=== PATIENT | male | born 1970 | race Caucasian/White ===

== ENCOUNTER 2017-04-01 19:31 | Emergency (ER) | payer OTHER ==
[~2017-04-01 19:31] MED LIST: BACTRIM DS 8001 TAB PO; COZAAR 50MG TAB50 MG PO; DOLOPHINE10 MG PO; DURICEF500 MG PO; KEFLEX500 MG PO; METHADONE H5 MG/5 M1 PO
--- NOTE | 2017-04-01 20:04 | RADIOLOGY REPORT ---
EXAMINATION: XR HAND, RIGHT CLINICAL INFORMATION: Pain after injury. COMPARISON: None TECHNIQUE: AP, lateral, and oblique views of the right hand. FINDINGS: No fracture or dislocation. Alignment is anatomic. Joint spaces are maintained. The soft tissues are unremarkable. IMPRESSION: No fracture or malalignment.
--- NOTE | 2017-04-01 20:25 | ED HAND/WRIST INJURY COMPLAINT ---
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 Source: patient Exam Limitations: no limitations Vital Signs & Intake/Output Vital Signs & Intake/Output Vital Signs Date Time Temp Pulse Resp B/P B/P Pulse O2 O2 Flow FiO2 Mean Ox Delivery Rate 04/01 2119 97.7 85 18 138/63 99 04/01 1941 90 22 142/84 97 Room Air Allergies Coded Allergies: MDX - Aspirin (ASPIRIN) (HIVES 12/16/14) Reconcile Medications Cefadroxil (Duricef) 500 MG CAP 1 CAP PO BID post op Losartan (Cozaar) 50 MG TAB 1 TAB PO DAILY B/P (Reported) Losartan/Hydrochlorothiazide (Losartan-Hctz 50-12.5 MG Tab) 50 MG-12.5 MG TABLET 1 TAB PO DAILY HTN (Reported) Metformin HCl 500 MG TABLET 1 TAB PO BID DM (Reported) Methadone Hydrochloride (Dolophine) 10 MG TABLET 60 MG PO D HEROIN ABUSE HX ( Reported) Triage Note: 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 PT REPORTS NEEDS AN XR TO SEE IF ITS BROKEN. NONSUTURABLE LAC TO TOP OF RT HAND + SWELLING + PULSES LAST TETANUS 5-6 YRS AGO Triage Nurses Notes Reviewed? yes Occurred: this afternoon Duration: hour(s):, constant, continues in ED Timing: recent history Injury Environment: work Severity: moderate, severe Pain/Injury Location: Left: Hand. Method of Injury: direct blow No Modifying Factors: none HPI: 47-year-old male comes into emergency room for further evaluation of left hand pain. Patient reports that at work his hand slipped and hit into a drill bit. The drill did not go through his hand. He has a superficial cut. Some swelling. Some pain. Denies any injury trauma anywhere else. Denies any numbness or tingling. Denies any other associated symptoms. (JAMARCUS ESCOBAR) Past History Travel History Traveled to [place] past 21 day No Medical History Any Pertinent Medical History? see below for history Neurological: NONE EENT: NONE Cardiovascular: hypertension, PVD Respiratory: NONE Gastrointestinal: NONE Hepatic: NONE Renal: NONE Musculoskeletal: NONE Psychiatric: anxiety, HX OF HEROIN (METHADONE) Endocrine: TYPE 2 DM Blood Disorders: NONE Cancer(s): NONE PARK GUIDE/Reproductive: NONE Surgical History Surgical History: non-contributory Psychosocial History What is your primary language [place] Tobacco Use: Current Daily Use Daily Tobacco Use Amount/Type: => 5 Cigarettes daily Family History Hx Contributory? No (JAMARCUS ESCOBAR) Review of Systems Review of Systems Constitutional: Reports: no symptoms. EENTM: Reports: no symptoms. Respiratory: Reports: no symptoms. Cardiovascular: Reports: no symptoms. GI: Reports: no symptoms. Genitourinary: Reports: no symptoms. Musculoskeletal: Reports: see HPI. Skin: Reports: no symptoms. Neurological/Psychological: Reports: no symptoms. Hematologic/Endocrine: Reports: no symptoms. Immunologic/Allergic: Reports: no symptoms. All Other Systems: Reviewed and Negative (JAMARCUS ESCOBAR) Physical Exam Physical Exam General Appearance: well developed/nourished, mild distress Head: atraumatic Eyes: Bilateral: normal appearance. Ears, Nose, Throat: normal ENT inspection, hearing grossly normal Neck: normal inspection Cardiovascular/Respiratory: no respiratory distress Back: normal inspection Hand Left: limited range of motion, soft tissue swelling Hand Right: normal inspection Neurologic/Tendon: normal sensation, normal motor functions, normal tendon functions, responds to pain, no evidence tendon injury, no pulse deficit Skin: intact, normal color, warm/dry Lymphatic: no anterior cervical sahra (JAMARCUS ESCOBAR) Progress Differential Diagnosis: abscess, cellulitis, contusion, dislocation, felon, fracture, gout, paronychia, septic arthritis, sprain Plan of Care: 04/01/2017 10:11:06 PM Patient clinically looks well. Patient is nontoxic-appearing. Patient is in no apparent distress. No evidence of acute fracture. Patient has a small skin abrasion. Tetanus shot up-to-date. Follow-up with primary care doctor. Return if any other concerns. Diagnostic Imaging: Viewed by Me: Radiology Read. Discussed w/RAD: Radiology Read. Radiology Impression: SERVICE DATE: 04/01/17 EXAM TYPE: RAD - XRY-HAND, RIGHT EXAMINATION: XR HAND, RIGHT CLINICAL INFORMATION: Pain after injury. COMPARISON: None TECHNIQUE: AP, lateral, and oblique views of the right hand. FINDINGS: No fracture or dislocation. Alignment is anatomic. Joint spaces are maintained. The soft tissues are unremarkable. IMPRESSION: No fracture or malalignment. (JAMARCUS ESCOBAR) Departure Departure Disposition: HOME OR SELF CARE Condition: Stable Clinical Impression Primary Impression: Contusion of right hand Referrals: MICHAEL WALDEN,JUAN (PCP/Family) Additional Instructions: Ice. Rest. Take ibuprofen for pain. Return if any other concerns. Follow-up with workman's comp. Please go over all results of today's visit with your primary care doctor. Contact your primary care doctor to let them know you were here in the emergency room. There may be nonspecific findings which may not be related to your visit today here in the emergency room but may require further evaluation and chronic monitoring by your primary care doctor. If you had a laceration today the chance of foreign body always remains. You should follow-up with your primary care doctor for recheck in 3-5 days for a wound check. If you had an x-ray done there is a chance that a fracture could have been missed on initial read and you should follow-up with your primary care doctor for repeat x-rays if symptoms persist. If your blood pressure was elevated here in the emergency room please have rechecked by her primary care doctor within the next 48 hours by your primary care doctor. If you were prescribed a narcotic here in the emergency room or any type of controlled substances you're not allowed to drive while taking this medication or operate any type of heavy machinery. Narcotics can make you feel lightheaded dizziness nausea and can cause constipation. 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 Thank you for choosing [facility] emergency room. Please return to the emergency room immediately if you have any other concerns worsening of symptoms. Departure Forms: Customer Survey Employee Industrial Accident General Discharge Information (JAMARCUS ESCOBAR) PA/AGRICULTURAL AND FORESTRY SUPERVISOR Co-Sign Statement Statement: ED Attending supervision documentation- [] I saw and evaluated the patient. I have also reviewed all the pertinent lab results and diagnostic results. I agree with the findings and the plan of care as documented in the PA's/AGRICULTURAL AND FORESTRY SUPERVISOR's documentation. [X] I have reviewed the ED Record and agree with the PA's/AGRICULTURAL AND FORESTRY SUPERVISOR's documentation. [] Additions or exceptions (if any) to the PAs/AGRICULTURAL AND FORESTRY SUPERVISOR's note and plan are summarized below: [] (EDWIN WALDEN,SANDRA Mckeon
[2017-04-01] MEDS ORDERED: LOSARTAN-HCTZ1 EAC1 PO (21:10)
[2017-04-01] MEDS ORDERED: METFORMIN HCL500 M3 PO (21:10)
[2017-04-01 21:19] VITALS: BP 138/63
== END 2017-04-01 21:23 ==
LOC: ERH 19:31
DX: S60.221A Contusion of right hand, initial encounter (principal); W29.8XXA Contact with other powered hand tools and household machinery, initial encounter; Y92.9 Unspecified place or not applicable; Y93.9 Activity, unspecified
CPT/HCPCS: 73130-RT